=== PATIENT | male | born 1945 | race Hispanic/Latino ===

== ENCOUNTER → 2018-03-02 | Outpatient (CLI) | payer MEDICARE ==
[~2018-03-02] MED LIST: ABAC300T9 PO; ASPI-1012 PO; CARV3.12 PO; DOXY100C2 PO; ETRA200T PO; FOLI1TAB82 PO; LIRA0.6P SQ; LOSA25TA21 PO; OMEG300C3 PO; RALT400T PO; SIMV20TA6 PO
== END | disposition home or self-care (01) ==
LOC: SHCH 14:40
PROVIDERS: ATTEND Internal Medicine Cardiovascular Disease
DX: R09.89 Other specified symptoms and signs involving the circulatory and respiratory systems (principal); Z95.0 Presence of cardiac pacemaker
CPT/HCPCS: 71046; 93880

== ENCOUNTER → 2019-01-15 | Outpatient (CLI) | payer MEDICARE ==
[~2019-01-15] MED LIST changes: -LOSA25TA21 PO; +LOSA25TA41 PO
== END | disposition home or self-care (01) ==
LOC: SHCH 09:06
PROVIDERS: ATTEND Internal Medicine Cardiovascular Disease
DX: I08.0 Rheumatic disorders of both mitral and aortic valves (principal); I11.9 Hypertensive heart disease without heart failure
CPT/HCPCS: 93306

== ENCOUNTER → 2019-04-15 | Outpatient (CLI) | payer MEDICARE | END | disposition home or self-care (01) | LOC: OIH 10:31 | PROVIDERS: ATTEND Family Medicine | DX: R76.12 Nonspecific reaction to cell mediated immunity measurement of gamma interferon antigen response without active tuberculosis (principal); I51.7 Cardiomegaly; Z95.0 Presence of cardiac pacemaker; M47.815 Spondylosis without myelopathy or radiculopathy, thoracolumbar region | CPT/HCPCS: 71046 ==